=== PATIENT | female | born 1975 | race African-American/Black ===

== ENCOUNTER 2017-01-06 21:31 | Emergency (ER) | payer MEDICARE, OTHER ==
--- NOTE | ~2017-01-06 | EKG ---
PATIENT: CYNDY BEAUCHAMP UNIT #: [id number] Ventricular Rate: 74 BPM Atrial Rate: 74 BPM P-R Interval: 202 ms QRS Duration: 86 ms Q-T Interval: 400 ms QTC Calculation(Bezet): 444 ms P Lindley: 32 degrees Calculated R Lindley: 12 degrees Calculated T Lindley: 24 degrees Diagnosis Line: Normal sinus rhythm Diagnosis Line: Minimal voltage criteria for LVH, may be normal Diagnosis Line: variant Diagnosis Line: Borderline ECG Diagnosis Line: When compared with ECG of 08-JUL-2015 01:03, Diagnosis Line: No significant change was found Diagnosis Line: Confirmed by RIKA HODGES MD ([id number]) on 01/08/2017 Diagnosis Line: 5:38:09 AM INTERPRETING MD: CARROLL UMANA
--- NOTE | ~2017-01-06 | CR72 ---
[facility] A Service of [facility] RADIOLOGY TEXT RESULTS PATIENT: CYNDY BEAUCHAMP LOCATION: [facility] : 75 UNIT #: [id number] AGE: [address]: Clifton Alan MD SEX: F ORDER DR: [id number] [facility] [address] [place], [place] [address] [id number] MR#: [id number] Acc #: [id number] NAME: CYNDY BEAUCHAMP : 1975 SEX: F STUDY DATE/TIME: 01/06/2017 23:36 UNIT: [facility] ROOM: STUDY DESCRIPTION: CR Chest Single View Portable Attending Physician: Clifton Alan M.D. Ordering Physician: Clifton Alan M.D. Primary Care Physician: Marjorie Hudson M.D. MEDICAL IMAGING REPORT This report is preliminary unless electronic signature is present EXAM Portable chest INDICATION Chest pain and shortness of air for the past day. PROCEDURE Frontal view chest. COMPARISON 07/08/2015 FINDINGS Heart size is unchanged. Pulmonary vessels stable. No new dense opacity, visible pleural fluid or pneumothorax. IMPRESSION No active process. Dictated by... Scot Davies M.D. THIS IS AN ELECTRONICALLY VERIFIED REPORT Scot Davies M.D. at 01/07/2017 10:02 PM EED/jerilyn TD: 01/07/2017 00:34 JOB #: [id number] MEDICAL IMAGING REPORT [facility] A Service of [facility] RADIOLOGY TEXT RESULTS PATIENT: CYNDY BEAUCHAMP LOCATION: [facility] : 75 UNIT #: [id number] AGE: [address]: Clifton Alan MD SEX: F ORDER DR: Page 1 of 1 COPY
[~2017-01-06 21:31] MED LIST: ALPRAZOLAM PO; CIPRO PO; DICLOFENAC PO; MUCINEX DM1 TAB.SR . PO; PHENERGAN PO; PYRIDIUM PO; SEROQUEL PO; SEROQUEL XR200 MG PO; TOPAMAX PO; ZITHROMAX PO; ZOLOFT PO
[2017-01-06 23:35] LABS: POC - CKMB <1.0 ng/mL (0.0-7.9); POC - TROPONIN <0.05 ng/mL (<=0.05)
[2017-01-06 23:40] LABS: INR 1.1; PARTIAL THROMBOPLASTIN TIME 27.4 SECONDS (23.5-31.3); PROTHROMBIN TIME (PATIENT) 11.7 SECONDS (10.0-11.7)
[2017-01-06 23:52] LABS: BASOPHIL# 0.1 X10e3 (0-0.3); BASOPHIL% 0.7 % (0-2.5); EOSINOPHIL# 0.1 X10e3 (0-0.7); EOSINOPHIL% 0.6 % (0.0-7.0); HEMATOCRIT 41.5 % (35.0-45.0); HEMOGLOBIN 13.1 gm/dL (12.0-16.0); LYMPHOCYTE# 3.9 X10e3 (1.0-3.5); LYMPHOCYTE% 36.6 % (17.0-45.0); MEAN CELL VOLUME 72.6 FL (83-96); MEAN CORPUSCULAR HGB CONC 31.7 g/dL (30-36); MEAN PLATELET VOLUME 8.5 FL (6.5-11.5); MONOCYTE# 0.5 X10e3 (0-1.0); MONOCYTE% 4.3 % (3.0-12.0); NEUTROPHIL# 6.2 X10e3 (1.5-7.1); NEUTROPHIL% 57.8 % (40-75); PLATELET COUNT 336 X10e3 (140-420); RED BLOOD COUNT 5.71 X10e (3.90-5.30); RED CELL DISTRIBUTION WIDTH 20.6 % (11.0-15.5); WHITE BLOOD COUNT 10.8 X10e3 (4.0-10.5)
[2017-01-06 23:54] LABS: DIFF IND NO
[2017-01-06 23:59] LABS: ALBUMIN SERUM 3.4 g/dL (3.5-5.0); BILIRUBIN, DIRECT 0.1 mg/dL (0.0-0.2); BILIRUBIN,TOTAL 0.1 mg/dL (0.2-2.0); BUN/CREATININE RATIO 17.14; CALCIUM SERUM 8.8 mg/dL (8.4-10.2); CREATININE SERUM 0.7 mg/dL (0.6-1.4); GLOM FILT RATE Estimated 124.7 mL/min (>60); PROTEIN TOTAL SERUM 7.6 g/dL (6.0-8.3)
[2017-01-07 00:02] LABS: POTASSIUM 2.9 mmol/L (3.5-5.1)
[2017-01-07 01:29] LABS: POC - CKMB <1.0 ng/mL (0.0-7.9); POC - TROPONIN <0.05 ng/mL (<=0.05)
== END 2017-01-07 02:00 | disposition home or self-care (01) ==
LOC: CED 21:31
PROVIDERS: Emergency Medicine
DX: R07.89 Other chest pain (principal); E87.6 Hypokalemia; I10 Essential (primary) hypertension; Z90.49 Acquired absence of other specified parts of digestive tract; F31.9 Bipolar disorder, unspecified; F17.200 Nicotine dependence, unspecified, uncomplicated
CPT/HCPCS: 36415; 71010; 80048; 80076; 82553; 84484; 85025; 85379; 85610; 85730; 93005; 96374; 99285; J2270